=== PATIENT | female | born 1980 | race Caucasian/White ===

== ENCOUNTER 2017-07-05 13:33 | Emergency (ER) | payer OTHER ==
[~2017-07-05] VITALS: Ht 157.5 cm; Wt 54.4 kg
[~2017-07-05 13:33] MED LIST: NOHOMEMEDICATIONS
[2017-07-05] MEDS ORDERED: PREDNISONE 20 M20 MG PO (14:44)
[2017-07-05] MEDS ORDERED: PROMETHAZINE/C118 ML PO (14:44)
[2017-07-05] MEDS ORDERED: TESSALON PERLE100 MG PO (15:02)
== END 2017-07-05 15:10 | disposition home or self-care (01) ==
LOC: ER 13:33
DX: J02.8 Acute pharyngitis due to other specified organisms (principal); B34.9 Viral infection, unspecified